=== PATIENT | male | born 1975 | race Caucasian/White ===

== ENCOUNTER 2019-12-21 16:28 | Emergency (ER) | payer OTHER, SELFPAY ==
[2019-12-21 16:34] VITALS: BP 145/98; PULSE 88; RESP 16; TEMP 36.6; O2SAT 100
--- NOTE | 2019-12-21 17:01 | ED.GENADULT ---
HPI - General Adult General Chief complaint: Extremity Injury, Lower Stated complaint: TOE INFECTION Time Seen by Provider: 12/21/19 17:01 Source: patient and RN notes reviewed Mode of arrival: ambulatory Limitations: no limitations History of Present Illness HPI narrative: 44-year-old male presents with complaints of Right Great toe lateral edge toenail with swelling, erythema, and pain for 6 days. Intermittent drainage started 1 day ago. Applied antibiotic ointment with band-aid with little relief. Increase redness over the last 24 hours. No known injury. Hurts to bear weight. No radiation of pain. No numbness or tingling, weakness, or loss of mobility. Denies inability to bear weight. 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 Relieving factor is rest. No fever or chills. No suspected foreign body. Some parts of this dictation were generated by voice recognition software and may contain typographical and/or grammatical inaccuracies. Related Data Allergies Allergy/AdvReac Type Severity Reaction Status Date / Time No Known Allergies Allergy Verified 12/21/19 16:42 Review of Systems Review of Systems: Narrative: CONSTITUTIONAL: Denies fever, chills, sweats. EYES: Denies visual changes, redness, discharge. ENT: Denies rhinorrhea, congestion, sore throat, otalgia. CARDIOVASCULAR: Denies chest pain, palpitations, edema. RESPIRATORY: Denies dyspnea, wheezing, cough. GASTROINTESTINAL: Denies abdominal pain, nausea, vomiting, diarrhea. GENITOURINARY: Denies dysuria, hematuria, abnormal discharge. SKIN: Denies rash or itching. MUSCULOSKELETAL: Denies acute back pain or myalgia. Complains of RT Great toe intermittent drainage, swelling, erythema, and tenderness. NEUROLOGIC: Denies numbness or focal weakness. PSYCHIATRIC: Denies anxiety or depression. All systems reviewed & are unremarkable except as noted in HPI and below. [facility] Past Medical History Medical History (Updated 12/21/19 @ 17:17 by REBECA Harrison) No significant past medical history Surgical History Surgical History (Updated 12/21/19 @ 17:17 by REBECA Harrison) No significant past surgical history Family History Family History (Updated 12/21/19 @ 17:18 by REBECA Harrison) Grandparent Diabetes mellitus Social History Social History (Updated 12/21/19 @ 17:18 by REBECA Harrison) Smoking status: Never smoker Second hand tobacco smoke exposure: Yes Substance use: never Living arrangements: with family Additional living arrangements comments: Occupation/Education: occupation Gender identity (if verbalized by the patient): Male Comments At time of signature, agree with nurse past medical, surgical, social, and family history. There is no relevant family history pertinent to the presenting complaint. Exam Narrative: Exam Narrative: GENERAL: This is a well-nourished, well-developed patient, in no apparent distress. HEAD: normocephalic, atraumatic. EYES: PERRL. Sclera clear/white. Vision is grossly intact. CARDIOVASCULAR: Regular rate and rhythm without murmurs, gallops, or rubs. RESPIRATORY: Clear to auscultation. Breath sounds equal bilaterally. No wheezes, rales, or rhonchi. GASTROINTESTINAL: Abdomen soft, non-tender, nondistended. Bowel sounds are active. No hepato-splenomegaly, or palpable masses. No guarding. SKIN: warm, intact with no suspicious lesions or rash, good texture and turgor. NEURO: awake, alert, and oriented to person, place and time. There were no obvious focal neurologic abnormalities. Steady gait. EXTREMITY: RT lateral edge of toenail great toe with mild-moderate swelling, erythema, and tenderness on palpation. Scant amount of flutuance consistent with Paronychia. Normal capillary refill, sensation of distal toe, 2-point discrimination, movement of toe at PIP and MTP. Foot appears normal upon exam. No streaking or redness into foot. Ankle/foot: Aligned. No tende
== END 2019-12-21 17:19 | disposition home or self-care (01) ==
PROVIDERS: Emergency Provider Nurse Practitioner Family
DX: L03.031 Cellulitis of right toe (principal)
CPT/HCPCS: 99203; G0463